=== PATIENT | male | born 1965 | race Caucasian/White ===

== ENCOUNTER 2018-10-24 17:21 | Observation (INO) | payer MEDICARE ==
[~2018-10-24] VITALS: Ht 175.3 cm; Wt 118.2 kg
[~2018-10-24 17:21] MED LIST: ATIVAN1 MG PO; CELEXA 20MG20 MG/TAB PO; HCTZ 25MG TAB25 MG PO; MELATONIN5 M1 PO; MOTRIN 800800 MG/TAB PO; NO HOME MEDICATIONS; NORVASC 5MG5 MG/TAB PO; SEROQUEL300 MG PO; ZESTRIL 10MG10 MG PO; ZOCOR 20MG20 MG PO; ZYPREXA 5MG5 MG PO; [UNRECOGNIZED DRUG - OTHER]
[2018-10-24 18:21] LABS: BASO # 0.1 (0.0-0.2); BASO % 0.6 % (0.0-2.0); EOS # 0.1 (0.0-0.7); EOS % 0.4 % (0-4.0); GRAN # 8.4 (1.4-6.5); GRAN % 75.4 % (42.2-75.2); HEMATOCRIT 44.5 % (42.0-52.0); HEMOGLOBIN 15.5 g/dl (13.5-18.0); LYMPH # 1.6 (1.2-3.4); LYMPH % 14.2 % (20.0-51.0); MEAN CELL VOLUME 88 fl (80.0-100.0); MEAN CORPUSCULAR HEMOGLOBIN 31 pg (27.0-31.0); MEAN CORPUSCULAR HGB CONC 35 g/dl (33.0-37.0); MEAN PLATELET VOLUME 8.5 fl (7.4-10.4); MONO % 9.1 % (1.7-9.3); PLATELET COUNT 324 K/mm3 (130-400); RED BLOOD COUNT 5.08 M/mm3 (4.20-5.60); REDCELL DISTRIBUTION WIDTH-CV 12.9 % (11.5-14.5)
[2018-10-24 18:29] LABS: ALANINE AMINOTRANSFERASE 44 U/L (21-72); ALBUMIN 4.4 gm/dL (3.5-5.0); ALKALINE PHOSPHATASE 103 U/L (50-136); ANION GAP 11 mmol/L (7-16); AST,SGOT 30 U/L (15-37); BILIRUBIN,TOTAL 0.5 mg/dL (0.0-1.0); BLOOD UREA NITROGEN 11 mg/dL (9-20); C-REACTIVE PROTEIN 3.8 mg/dL (0.0-0.9); CALCIUM 9.8 mg/dL (8.4-10.2); CARBON DIOXIDE 22 mmol/L (22-30); CHLORIDE 104 mmol/L (98-107); CREATININE, serum 1.01 (0.66-1.25); GLUCOSE 104 mg/dL (74-106); LIPASE 116 U/L (23-300); POTASSIUM 3.9 mmol/L (3.4-5.0); SODIUM 137 mmol/L (137-145); TOTAL PROTEIN 7.9 gm/dL (6.4-8.2)
[2018-10-24] MEDS ORDERED: CLARITIN REDITAB5 MG PO (18:33)
[2018-10-24 18:39] LABS: TROPONIN-I < 0.012 ng/mL (0.000-0.035)
[2018-10-24 22:39] VITALS: BP 102/69; PULSE 111; TEMP 98.4
--- NOTE | 2018-10-24 23:48 | NUR ---
Admitted to medical floor from ER with chest pain- states has chest pain 3/10, mid chest ,,more of an ache,, IV fluids of NS at 125cc/hr- Up in room as tolerated- getting troponins drawn,, negative so far-- Lois CHAU here to see pt-
[2018-10-25] VITALS (7 sets, daily range): BP systolic 102–106; BP diastolic 68–71; PULSE 88–111; TEMP 97.4–98.4
--- NOTE | 2018-10-25 05:58 | NUR ---
Quiet night- was given C[place]han for mid chest pain-was effective,,VSS, HR remained around 100/min
[2018-10-25 08:37] LABS: CHOLESTEROL 162 mg/dL (120-200); CHOLESTEROL RISK RATIO 3.8; HDL CHOLESTEROL 42 mg/dL; LDL CHOLESTEROL 106 mg/dL; TRIGLYCERIDE 70 mg/dL
--- NOTE | 2018-10-25 08:38 | NUR ---
PATIENT ASSESSMENT COMPLETED. HE COMPLAINS OF SOME MIDDLE CHEST PAIN SCHEDULED IBUPROFEN GIVEN TO EARLY FOR PRN PAIN MEDICATIONS. HE REPOSITIONS TO THE SIDE OF THE BED WITH A LITTLE RELIEF. NO OTHER NEEDS AT THIS TIME
[2018-10-25 09:54] LABS: TROPONIN-I < 0.012 ng/mL (0.000-0.035)
--- NOTE | 2018-10-25 09:56 | NUR ---
PATIENT RESTING IN BED. HE DENIES NEED FOR FURTHER PAIN MEDICATION AT THIS TIME.
--- NOTE | 2018-10-25 11:01 | NUR ---
SW met with the patient to discuss a discharge plan. The patient lives in alone in [place]. The patient does not use any DME and he reports independence with ADLs. The patient's PCP is Dr. Gordon Siddiqui and the patient receives his medications from [facility]. The patient reports no difficulties obtaining his medications. The patient does not have advanced directives in the EMR and he was not interested in obtaining a DPOA-HC form at this time. The patient plans to return home upon discharge. There are no additional needs at this time.
--- NOTE | 2018-10-25 11:21 | NUR ---
Provided spiritual care, visited and prayed with the patient.
--- NOTE | 2018-10-25 15:00 | NUR ---
PATIEND DISCHARGE INFORMATION REVIEWED WITH PATIENT. HE DENIES ANY QUESTIONS OR FURTHER NEEDS. DISCHARGED VIA PEDIS WITH HIS SON.
== END 2018-10-25 15:00 | disposition home or self-care (01) ==
LOC: COL.ER 17:21 → MEDICAL 22:07
PROVIDERS: Emergency Medicine; ADMIT Family Medicine
DX: R07.89 Other chest pain (principal); R00.0 Tachycardia, unspecified; I10 Essential (primary) hypertension; F20.9 Schizophrenia, unspecified; F31.9 Bipolar disorder, unspecified; E78.5 Hyperlipidemia, unspecified; Z79.899 Other long term (current) drug therapy
CPT/HCPCS: 99239; G0378; J7030; Q9967